=== PATIENT | male | born 1985 | race Caucasian/White ===

== ENCOUNTER 2022-09-08 11:43 | Emergency (ER) | payer BC, SELFPAY ==
[2022-09-08 11:59] VITALS: BP 193/102; PULSE 93; RESP 18; TEMP 36.8; O2SAT 100
--- NOTE | 2022-09-08 12:29 | ED.EYEPROB ---
HPI - Eye Problem General Chief complaint: Eye Problems Stated complaint: Lt Eye Irritation Time Seen by Provider: 09/08/22 12:35 Source: patient, RN notes reviewed and old records reviewed Mode of arrival: ambulatory Limitations: no limitations History of Present Illness HPI Narrative: 37-year-old male presents to the [facility] with complaints of left eye irritation. left upper eye lid mild swelling. crust noted to the lateral left eye. a sore with honey clear crusting to the right nostril that he thought was a cold sore. History of high blood pressure, States he has not taken his medication today. Symptoms for couple of days Related Data Home Medications Medication Instructions Recorded Confirmed amlodipine 10 mg tablet 10 mg DAILY 09/08/22 09/08/22 losartan 100 mg tablet 100 mg DAILY 09/08/22 09/08/22 nebivolol 10 mg tablet 15 mg DAILY 09/08/22 09/08/22 Allergies Allergy/AdvReac Type Severity Reaction Status Date / Time lisinopril Allergy Unknown Diarrhea Verified 09/08/22 12:43 Review of Systems Review of Systems: All systems reviewed & are unremarkable except as noted in HPI and below Constitutional: Constitutional: Reports no additional constitutional complaints Eyes: Eyes: Reports as per HPI, Denies change in vision and Denies photophobia ENT: Reports as per HPI Cardiovascular: Cardiovascular: Reports no additional cardiovascular complaints, Denies chest pain and Denies dyspnea Respiratory: Respiratory: Reports no additional respiratory complaints, Denies chest congestion, Denies cough and Denies dyspnea Gastrointestinal: Gastrointestinal: Reports no additional gastrointestinal complaints, Denies abdominal pain, Denies nausea and Denies vomiting Musculoskeletal: Musculoskeletal: Reports no additional musculoskeletal complaints Integumentary/Breasts: Skin/Breast: Reports system reviewed and no additional complaints, except as docu Neurologic: Reports system reviewed and no additional complaints, except as documented Psychiatric: Psychiatric: Reports no additional psychiatric complaints Allergic/Immunologic: Allergic/Immunologic: Reports no additional allergic/immunologic complaints [facility] Past Medical History Medical History (Updated 09/08/22 @ 18:54 by Diane Iverson APRN) Branch retinal vein occlusion left eye, surgically repaired Family History Family History Mother Hypertension Father Family history of alcoholism Social History Social History (Reviewed 09/08/22 @ 18:51 by KOBY Kumar Smoking status: Former smoker Smoking end date: 09/10/12 Alcohol intake: never Comments At the time of my signature, I reviewed and agree with the nursing past medical, surgical, social, and family history. There is no relevant family history pertinent to the patient complaint. Exam Const: General: cooperative, healthy appearing, comfortable, no acute distress, well developed, alert and well nourished Nutritional Appearance: well nourished and obese Orientation/consciousness: patient oriented x3 Limitations: no limitations HENMT: Head: normal to inspection Ears: hearing grossly normal bilaterally and external ears normal Face/Nose/Sinus: Normal external nose present, Normal nares present, Normal nasal mucous membranes and turbinates present and normal facial exam Nose image: 1. honey-colored crusting 1 x 1 cm Face and sinus: normal facial exam Mouth: Yes Normal oral and palatal mucosa present, Yes lip normal and Yes moist mucous membranes Throat: posterior oropharynx normal and uvula midline Eyes: General: appearance normal, both eyes and all related structures Alignment and Position: alignment normal Eyelids: eyelid abnormality left upper eyelid inflamed cyst, swelling and tenderness; without erythema Conjunctivae: conjunctivae normal Pupils: Equal, round and reactive pupils present EOM: EOMs intact bilate
== END 2022-09-08 12:56 | disposition home or self-care (01) ==
PROVIDERS: Emergency Provider Nurse Practitioner; PCP Family Medicine
DX: H00.014 Hordeolum externum left upper eyelid (principal); L01.00 Impetigo, unspecified; Z87.891 Personal history of nicotine dependence; I10 Essential (primary) hypertension
CPT/HCPCS: 99213; G0463

== ENCOUNTER 2023-10-08 08:04 | Outpatient (CLI) | payer BC, SELFPAY ==
--- NOTE | 2023-10-15 12:26 | WPDSLEEPSTUD ---
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 He does not awaken from sleep feeling short of breath. He does not awaken at night with heartburn, belching or coughing. He occasionally snores and occasionally this is loud enough that others complain about it. He rarely has trouble sleeping when he has a cold. He never wakes up gasping for breath during the night. He never has breathing problems at night. He rarely sweats excessively at night. He never notices his heart pounding or beating irregularly during the night. He rarely falls asleep during the day. He never falls asleep involuntarily, never falls asleep while driving. He never experiences loss of muscle tone with strong emotion. He never has daytime difficulty at work due to excessive sleepiness. He never feels paralyzed on waking or falling asleep. He rarely experiences vivid dreams upon waking or falling asleep. He never feels afraid of going to sleep. He rarely has nightmares. He occasionally recalls his dreams. He occasionally has thoughts racing through his mind. He occasionally feels sad or depressed. He occasionally feels anxiety. He rarely notices parts of his body jerk. He rarely kicks during the night. He rarely feels crawling or aching feelings in his legs. He rarely feels leg pain at night. He rarely has morning jaw pain, never grinds his teeth at night. He occasionally feels bothered by pain during the day, occasionally awakened by pain during the night. He rarely wakes up feeling stiff in the morning, and he rarely wakes feeling sore or achy. He rarely awakens with pain in his neck, spine, or joints. Normal bedtime is 9:00 p.m. falling asleep within 5 minutes but sometimes taking up to 1/2 hour, waking 1-2 times at night, usually to go to the bath. Wake time is 4:30 a.m.. He typically gets 7 to 7-1/2 hours of sleep per night. On weekends, bedtime is 10:00 p.m. and his wake time is 5:30 a.m.. He takes no naps in the day. A short nap is not refreshing. Habits:??Tobacco: former smoker quit 5-7 years ago Caffeine: 2 servings per day. Alcohol: none Recreational substances: none [facility] Past Medical History Medical History (Updated 10/15/23 @ 13:05 by Theresa Merrill MD) Branch retinal vein occlusion left eye, surgically repaired Depression Hypertension Obstructive sleep apnea Family History Family History Mother Hypertension Father Family history of alcoholism Social History Social History Smoking status: Former smoker Smoking end date: 09/10/12 Alcohol intake: never Medications Home Medications Medication Instructions Recorded Confirmed Type amlodipine 10 mg tablet 10 mg DAILY 09/08/22 09/08/22 History ciprofloxacin HCl 0.3 % eye drops 1 drp LEFT EYE BID 5 days #2.5 mL 09/08/22 Rx clindamycin HCl 300 mg capsule 300 mg PO TID 7 days #21 caps 09/08/22 Rx losartan 100 mg tablet 100 mg DAILY 09/08/22 09/08/22 History mupirocin 2 % topical ointment 1 applic topical BID #15 grams 09/08/22 Rx nebivolol 10 mg tablet 15 mg DAILY 09/08/22 09/08/22 History Sleep Procedure A full CPAP polysomnogram using the [employer] multi-channel system recorded the standard physiologic parameters including EEG, EOG, submentalis EMG, anterior tibialis EMG, EKG, body position, nasal and oral airflow using nasa
[2023-10-15 12:33] VITALS: BMI 40.8
== END 2023-10-09 06:22 | disposition home or self-care (01) ==
PROVIDERS: PCP Family Medicine; Visit Provider Internal Medicine Cardiovascular Disease
DX: G47.33 Obstructive sleep apnea (adult) (pediatric) (principal)
CPT/HCPCS: 95811

== ENCOUNTER 2025-06-02 07:39 | Outpatient (CLI) | payer BC, SELFPAY ==
--- NOTE | ~2025-06-02 | XR_ITS ---
EXAMINATION: XR knee LT min 4V, 06/02/2025 7:44 CDT HISTORY: L knee pain COMPARISON: No comparisons available. Findings: No acute fracture or malalignment. No significant degenerative changes. Soft tissues unremarkable. Impression: No acute fracture or malalignment. Reviewed, dictated and finalized at location A. Impression: No acute fracture or malalignment.
== END 2025-06-02 07:40 | disposition home or self-care (01) ==
LOC: MICIMG 07:42
PROVIDERS: PCP Nurse Practitioner Family; Visit Provider Nurse Practitioner Family
DX: M25.562 Pain in left knee (principal)
CPT/HCPCS: 73564